=== PATIENT | male | born 1965 | race African-American/Black ===

== ENCOUNTER 2016-08-28 07:08 | Emergency (ER) | payer SELFPAY ==
[~2016-08-28] VITALS: Ht 182.9 cm; Wt 105.0 kg
[~2016-08-28 07:08] MED LIST: FLEXERIL OR; FLEXERIL PO; LORTAB5 OR; NAPROSYN500 MG OR; NAPROSYN500 MG PO; PENICILLN VK500 M1 OR
[2016-08-28] MEDS ORDERED: LORTAB 5-325 MG1 TAB PO (08:10)
[2016-08-28] MEDS ORDERED: MOTRIN800 MG PO (08:10)
[2016-08-28] MEDS ORDERED: FLEXERIL PO (08:10)
[2016-08-28 08:31] VITALS: BP 143/98
== END 2016-08-28 08:31 | disposition home or self-care (01) | DRG 552 ==
LOC: ED 07:08
DX: M54.31 Sciatica, right side (principal); F17.210 Nicotine dependence, cigarettes, uncomplicated

== ENCOUNTER 2024-03-23 17:03 | Emergency (ER) | payer OTHER ==
[~2024-03-23] VITALS: Ht 182.9 cm; Wt 86.0 kg
[2024-03-23] VITALS (10 sets, daily range): BP systolic 103–130; BP diastolic 53–82
[~2024-03-23 17:03] MED LIST changes: +LORTAB 5-325 MG1 TAB PO; +MOTRIN800 MG PO; +NEXIUM40 M1 PO; +TAMSULOSIN0.4 MG PO
[2024-03-23 17:41] LABS: BASO% 0.3 % (0-3); EOS% 4.9 % (0-8); IMMATURE GRANULOCYTES 0.7 % (0.0-5.0); LYMPH% 27.8 % (15-41); MEAN CORPUSCULAR HGB 28.2 pG CALC (26.0-32.0); MEAN CORPUSCULAR HGB CONC 30.3 g/dL CAL (32.0-36.0); NEUT# 3.96 thou/uL (1.82-7.42); NEUT% 55.3 % (42-76); RED BLOOD COUNT 4.15 mill/uL (4.70-6.10); RED CELL DISTRI WIDTH 13.3 % (11.5-15.5)
[2024-03-23 17:42] LABS: URINE BLOOD DIPSTICK Trace-intact (NEGATIVE); URINE GLUCOSE - DIPSTICK Negative (NEGATIVE); URINE KETONE Negative (NEGATIVE); URINE LEUK ESTERASE Negative (NEGATIVE); URINE NITRITE - DIPSTICK Negative (Negative); URINE PROTEIN - DIPSTICK 30 mg/dL (NEG-TRACE); URINE UROBILINOGEN - DIPSTICK >=8.0 E.U./dL (0.2)
[2024-03-23 17:43] LABS: URINE COLOR Dark yellow
[2024-03-23 17:52] LABS: ALBUMIN 3.9 g/dL (3.2-5.0); ALKALINE PHOSPHATASE 46 u/l (38-126); BILIRUBIN, TOTAL 1.1 mg/dL (0.2-1.3); BUN 13 mg/dL (9-20); BUN/CREATININE RATIO 16 (12-20 (CALC)); CHLORIDE 103 mmol/l (95-108); CREATININE 0.8 mg/dL (0.7-1.3); ESTIMATED GFR 101 ML/MIN (>=90 (CALC)); LIPASE 151 u/l (23-300); POTASSIUM 3.6 mmol/l (3.5-5.1); SGOT/AST 49 u/l (17-59); SODIUM 141 mmol/l (137-146); TOTAL PROTEIN 7.8 g/dL (6.3-8.2); URINE MUCUS FEW hpf (NONE-FEW); URINE RBC 0-2 RBC/hpf (0-5); URINE SQUAMOUS EPITHELIAL CELL RARE EPI/hpf (0-FEW)
[2024-03-23 17:53] LABS: ANION GAP 12 (6-22 (CALC)); CARBON DIOXIDE 30 mmol/l (22-30)
[2024-03-23 17:54] LABS: HEMATOCRIT 38.6 % (39.0-50.0); HEMOGLOBIN 11.7 g/dl (14.0-18.0)
[2024-03-23] MEDS ORDERED: DOXYCYCLINE HYCLATE 100 MG/CAP PO ONE (19:45)
[2024-03-23] MEDS ORDERED: PROTONIX40 M2 PO ×2 (19:56→20:00)
[2024-03-23] MEDS ORDERED: VIBRAMYCIN100 M2 PO ×2 (19:56→20:00)
== END 2024-03-23 20:16 | disposition home or self-care (01) | DRG 391 ==
LOC: ED 17:03
PROVIDERS: Nurse Practitioner
DX: K29.70 Gastritis, unspecified, without bleeding (principal); J18.9 Pneumonia, unspecified organism; F17.210 Nicotine dependence, cigarettes, uncomplicated; Z20.822 Contact with and (suspected) exposure to COVID-19
CPT/HCPCS: Q9967